=== PATIENT | male | born 1960 | race Two or more races ===

== ENCOUNTER 2024-01-05 05:45 | Emergency (ER) | payer MEDICAID, OTHER ==
[~2024-01-05] VITALS: Ht 180.3 cm; Wt 86.3 kg
[2024-01-05 06:38] VITALS: BP 122/80; PULSE 78; RESP 14; TEMP 97.8; O2SAT 94
[2024-01-05] MEDS ORDERED: IBUP-1454 PO (07:28)
== END 2024-01-05 07:51 | disposition home or self-care (01) ==
LOC: ER 05:45
DX: S92.324A Nondisplaced fracture of second metatarsal bone, right foot, initial encounter for closed fracture (principal); W22.8XXA Striking against or struck by other objects, initial encounter; Y93.89 Activity, other specified; Y92.89 Other specified places as the place of occurrence of the external cause; Y99.8 Other external cause status
CPT/HCPCS: 29515; 73630